=== PATIENT | female | born 1945 | race American Indian/Alaskan Native ===

== ENCOUNTER 2018-03-30 09:00 | Outpatient (CLI) | payer MEDICARE ==
--- NOTE | 2018-03-30 13:28 | Mammography Report ---
BILATERAL DIGITAL SCREENING MAMMOGRAM WITH CAD: 03/30/18 09:00:00 CLINICAL: Routine screening.Breast cancer survivor status post right partial mastectomy radiation therapy. COMPARISON:12/01/15 FINDINGS: The breasts are heterogeneously dense, which may obscure small masses. Four biopsy clips in the right breast. Previously biopsied right inner calcifications are more dense with no suspicious features. No mass or architectural distortion. Stable moderate skin thickening of the right breast. No mass, architectural distortion or suspicious calcifications of the left breast. IMPRESSION: No mammographic evidence of malignancy. BI-RADS CATEGORY: 2 -- Benign RECOMMENDATION: Routine mammographic screening in one year. COMMENT: Patient follow-up letters are generated via our [employer] application.
== END 2018-03-30 09:01 | disposition home or self-care (01) ==
LOC: SPVWC 09:00
PROVIDERS: ATTEND Family Medicine
DX: Z12.31 Encounter for screening mammogram for malignant neoplasm of breast (principal)
CPT/HCPCS: 77067